=== PATIENT | male | born 1965 | race Hispanic/Latino ===

== ENCOUNTER 2024-02-08 17:54 | Emergency (ER) | payer OTHER, SELFPAY ==
[2024-02-08 17:59] VITALS: BMI 25.9
[2024-02-08 18:00] VITALS: BP 143/99
[2024-02-08 18:17] LABS: % Basophils 0.5 % (0-2); % Immature Granulocytes 0.6 % (0-0.5); % Lymphocytes 24.6 % (20.5-51.1); % Monocytes 9.1 % (1.7-9.3); % Neutrophils 64.2 % (42.2-75.2); Absolute Eosinophils 0.1 10^3/uL (0-0.7); Absolute Immature Granulocytes 0.1 10^3/uL (0-0.05); Absolute Lymphocytes 2.2 10^3/uL (1.2-3.4); Absolute Monocytes 0.8 10^3/uL (0.1-0.6); Absolute Neutrophils 5.6 10^3/uL (1.4-6.5); Hematocrit 44.7 % (39.0-52.0); Hemoglobin 16.1 g/dL (13.0-18.0); Mean Corpuscular Volume 91.6 fL (80.0-94.0); Mean Platelet Volume 11.5 fL (7.4-10.4); Nucleated Red Blood Cells % 0 % (-); Platelet Count 174 10^3/uL (130-400); Red Blood Cell Count 4.88 10^6/uL (4.70-6.10); Red Cell Dist. Width 11.7 % (11.5-14.5); White Blood Cell Count 8.8 10^3/uL (4.8-10.8)
[2024-02-08 18:19] LABS: Urine Albumin Negative (Neg - Trace); Urine Bilirubin Negative (Negative); Urine Character Clear (Clear); Urine Color Yellow; Urine Glucose Negative (Negative); Urine Ketone Negative (Negative); Urine Leukocyte Negative (Negative); Urine Nitrite Negative (Negative); Urine Occult Blood 2+ (Negative); Urine Urobilinogen Negative (Neg - 1+); Urine pH 6.5 (5.0-9.0)
[2024-02-08 18:29] LABS: Urine White Cell None Seen /HPF (0-5)
[2024-02-08 18:32] LABS: ALT (SGPT) 53 U/L (0-50); AST (SGOT) 38 U/L (17-59); Albumin 4.7 g/dl (3.5-5.0); Alkaline Phosphatase 129 U/L (38-126); Blood Urea Nitrogen 16 mg/dl (9-20); Calcium 9.2 mg/dl (8.4-10.2); Carbon Dioxide 29 mmol/L (22-30); Chloride 101 mmol/L (98-107); Estimated Creatinine Clearance 84 ml/min; Glucose 112 mg/dl (70-99); Potassium 3.7 mmol/L (3.5-5.1); Sodium 137 mmol/L (135-145); Total Protein 7.4 g/dl (6.3-8.2); eGFR > 60.00
[2024-02-08 23:33] VITALS: BP 132/96
--- NOTE | 2024-02-08 23:33 | ED.GENMED ---
History of Present Illness
General
Chief Complaint: Flank Pain
Source: patient
Exam Limitations: none
Time Seen by Provider: 02/08/24 23:14
Nursing documentation reviewed up to this point in time: agreed with
Travel History
Have you had any contact with someone who has COVID-19?: No
Do you have any symptoms of coronavirus? Fever > 100 degrees, chills, cough, shortness of breath, sore throat, loss of taste or smell, muscle aches, or headache?: No
History of Present Illness
History of Present Illness:
58-year-old male with no chronic medical issues presents to the emergency room for evaluation of flank pain. Patient reports onset of symptoms at around 10 AM�he reports initially they were mild and then became very intense for about an hour and
were waxing and waning intensity throughout the day. Currently however he is pain-free says his symptoms have resolved/abated for the time being. He describes a sharp pain in the left flank with no clear triggering or relieving factor�no worse
with movement. He did not take any pain medication to relieve his symptoms. He denies any associated fevers or chills. Has not had any dysuria, hematuria, change in urinary frequency. He denies having had similar symptoms in the past. He says
he was initially seen in urgent care where he had an x-ray and a urinalysis and was told that he likely had a kidney stone and that he should come to the emergency room for assessment.
Review of Systems
Review of Systems
All Other Systems: ROS reviewed and negative except as documented in HPI and ROS
Constitutional: Denies fever or chills
Respiratory: Denies trouble breathing
Cardiac: Denies chest pain
ABD/GI: Denies abdominal pain, nausea or vomiting
: Reports flank pain; Denies dysuria or frequency
Musculoskeletal: Denies neck pain or back pain
Neurological: Denies headache, weakness or numbness
Phy Exam
Physical Exam
Physical Exam:
General: Awake, alert, oriented x3; sitting comfortably in bed, no acute distress
Head: Normocephalic, atraumatic
Eyes: Conjunctiva normal, sclerae
Throat: Airway intact, handling secretions
Neck: Trachea midline, supple without meningismus
Lungs: Breathing comfortably no distress
Heart: Regular rate
Abd: Soft, non distended, nontender with no abdominal mass
Back: No CVA tenderness
Neuro: Cranial nerves grossly intact, speech fluid, no gross motor or sensory deficits
Skin: no rash
Extremities: Warm well-perfused
Scores
Heart Failure Risk
Heart Failure Risk Score: Not Applicable
Heart Score for Chest Pain Patients
STEMI patient?: Not applicable
Withdrawal Assessment of Alcohol
Withdrawal Assessment Completed?: Not applicable
Course
Orders/Labs/Results
Orders:
Orders
02/08/24 18:11
Complete Blood Count/With Diff Urgent
Comprehensive Metabolic Panel Urgent
Urinalysis Reflex To Culture Urgent
Date Specimen was Collected: 02/08/24
Time Specimen was Collected: 18:02
Urine Microscopic Reflex Cult Urgent
02/08/24 19:17
Abdomen/Pelvis wo Contrast CT [CT Abd/pelvis Wo Iv Cont] Urgent
Comment:
Reason For Exam: FLANK PAIN
Abnormal Lab Results
02/08/24
18:11
MCH 33.0 H pg
(27.0-31.0)
MPV 11.5 H fL
(7.4-10.4)
Abs Immat Gran (auto) 0.1 H 10^3/uL
(0-0.05)
Absolute Monos (auto) 0.8 H 10^3/uL
(0.1-0.6)
Immature Gran % 0.6 H %
(0-0.5)
Glucose 112 H mg/dl
(70-99)
ALT 53 H U/L
(0-50)
Alkaline Phosphatase 129 H U/L
(38-126)
Ur Occult Blood Reflex 2+ A
(Negative)
Urine RBC 7-10 A /HPF
(0-2)
02/08/24 18:11
02/08/24 18:11
Vital Signs
Initial and Last Documented VS:
Initial Vital Signs
Temp Pulse Resp BP Pulse Ox
36.6 C 92 18 143/99 98
02/08/24 18:00 02/08/24 18:00 02/08/24 18:00 02/08/24 18:00 02/08/24 18:00
Last Documented Vital Signs
Temp Pulse Resp BP Pulse Ox
36.6 C 72 18 143/99 100
02/08/24 18:00 02/08/24 23:19 02/08/24 23:19 02/08/24 18:00 02/08/24 23:19
MDM/Problems Addressed
Differential Diagnosis Includes:
Nephrolithiasis, diverticulitis, colitis, UTI, musculoskeletal pain
MDM/Problems Addressed:
58-year-old male presents for evaluation of left flank pain waxing and waning throughout the afternoon now it seems to have resolved. Vital signs are normal. Exam as above. He had lab work sent in triage including a CBC which was unremarkable,
CMP which showed no clinically significant abnormalities�notably normal creatinine. His urinalysis was positive for blood but negative for any signs of infection. He was sent for a CT of the abdomen and pelvis�CT showed a 6 mm nonobstructive
intrarenal stone in the midpole. Differential for symptoms could include intermittent obstruction from intrarenal stone versus another stone which recently passed given his resolution of pain. No clear indication for admission at this point in
time we will plan to discharge will start him on Flomax given he does have significant sized intrarenal stone; provide ibuprofen and oxycodone as needed should symptoms return. I had a long discussion with the patient about return precautions
including worsening pain or symptoms of infection. Advised to follow-up with urology as an outpatient. He feels comfortable with this plan. We spoke about return precautions and all questions were answered.
*Radiology
Radiology exam reviewed: radiology read reviewed
*Pulse Oximetry
Patient hypoxic: no
*Critical Care Note
Total Time (30-74mins, 75-104mins- exclusive of procedures): Not Applicable
Data Reviewed
Source: patient and records
ED Attending Note
-
Portions of this chart may have been created with voice recognition software.� Occasional wrong word or��sound alike� substitutions may have occurred due to the inherent limitations of voice recognition software.
Discharge Plan
Departure
Patient Disposition: Home (Routine Discharge)
Date of Disposition: 02/08/24
Time of Disposition: 23:32
Patient with high blood pressure during this ER visit?: No
Discharge Problem:
Left nephrolithiasis
Instructions: Kidney Stones (DC)
Prescriptions:
New
oxycodone 5 mg tablet
5 mg PO TID PRN (Reason: Pain) Qty: 14 0RF
ibuprofen 400 mg tablet
400 mg PO Q6H PRN (Reason: Pain) Qty: 30 0RF
tamsulosin [Flomax] 0.4 mg capsule
0.4 mg PO DAILY Qty: 14 0RF
Referrals:
Farooq Tatum MD [Active] - Call in 1-3 days for appt
Activity Restrictions/Additional Instructions:
Thank you for visiting the Emergency Department at [facility].
1. Please schedule a follow up appointment as directed. Call first thing tomorrow morning to make an appointment.
2. If indicated, please take your medications as instructed and indicated on discharge paperwork.
3. If any of your symptoms do not improve, or persist, or become more severe within 6-12 hours, please return to the emergency department for further care.
4. Please return to the emergency department if you develop a headache, neck pain/stiffness, fever greater than 100.4F, chest pain, shortness of breath, persistent nausea, vomiting, slurred speech, difficulty walking, numbness/tingling, weakness,
signs of infection or any other symptoms that are worrisome to you.
Please call [phone] if you have any questions.
Interventions
Interventions:
*Risk Screen - Suicide Last Done: 02/08/24 18:00
*General Assessment Last Done: 02/08/24 18:00
*Neglect/Abuse Screening Last Done: 02/08/24 18:00
*ED COVID-19 Vaccine History Last Done: 02/08/24 18:00
JR-Gxoodm-Vsqyexbxii Assessment Last Done: 02/08/24 23:20
ED-Male Genitourinary Assessment Last Done: 02/08/24 23:20
Discharge Date and Time
Print Language: [place]
== END 2024-02-08 23:45 | disposition home or self-care (01) ==
LOC: EMR 17:54
PROVIDERS: Emergency Medicine; EMERGENCY PHYSICIAN Emergency Medicine
DX: N20.0 Calculus of kidney (principal)
CPT/HCPCS: 99284; 74176; 80053; 81003; 81015; 85025